=== PATIENT | male | born 1975 | race Caucasian/White ===

== ENCOUNTER 2022-07-13 10:39 | Outpatient (CLI) | payer OTHER, SELFPAY ==
[2022-07-13 21:30] LABS: Albumin* 4.9 g/dL (3.3-5.0); Chloride* 101 mmol/L (96-114)
[2022-07-13 21:31] LABS: Potassium* 4.5 mmol/L (3.6-5.1); Sodium* 141 mmol/L (135-149)
[2022-07-13 21:32] LABS: Cholesterol* 192 mg/dL (90-199)
[2022-07-13 21:33] LABS: Alanine Aminotransferase* 32 U/L (4-50); Alkaline Phosphatase* 90 U/L (40-150); Aspartate Amino Transferase* 28 U/L (12-35); Bilirubin Total* 1.6 mg/dL (0.1-1.5); Blood Urea Nitrogen* 12 mg/dL (5-24); Carbon Dioxide* 28 mmol/L (20-32); Creatinine* 0.9 mg/dL (0.5-1.5); Estimated Glomerular Filt Rate 107 ml/min; Glucose* 87 mg/dL (60-115); Total Protein* 7.2 g/dL (6.0-8.3); Triglycerides* 124 mg/dL (40-149)
[2022-07-13 21:34] LABS: Calcium* 8.6 mg/dL (8.4-10.6); HDL Cholesterol* 42 mg/dL (>=40); LDL Cholesterol Calculated 125 mg/dL (<100)
[2022-07-13 22:04] LABS: PSA Screen* 0.35 ng/mL (0.10-4.00)
== END 2022-07-13 10:40 | disposition home or self-care (01) ==
PROVIDERS: PCP Family Medicine; Visit Provider Family Medicine
DX: Z00.00 Encounter for general adult medical examination without abnormal findings (principal); Z13.1 Encounter for screening for diabetes mellitus; R53.83 Other fatigue; Z12.5 Encounter for screening for malignant neoplasm of prostate; Z13.6 Encounter for screening for cardiovascular disorders
CPT/HCPCS: 80053; 80061; 84153; 84443

== ENCOUNTER 2022-08-20 09:43 | Outpatient (CLI) | payer OTHER, SELFPAY | END 2022-08-20 09:44 | disposition home or self-care (01) | PROVIDERS: PCP Family Medicine; Visit Provider Internal Medicine | DX: Z12.11 Encounter for screening for malignant neoplasm of colon (principal); K63.5 Polyp of colon; Z80.0 Family history of malignant neoplasm of digestive organs | CPT/HCPCS: 45380; 45385; 88305; J2250; J3010 ==